=== PATIENT | female | born 1955 | race Caucasian/White ===

== ENCOUNTER → 2024-04-08 16:10 | Outpatient (REF) | payer MEDICARE, SELFPAY | LOC: RCS 16:10 | PROVIDERS: ATTENDING PHYSICIAN Internal Medicine Cardiovascular Disease | DX: R93.1 Abnormal findings on diagnostic imaging of heart and coronary circulation (principal) | CPT/HCPCS: 93306 ==

== ENCOUNTER → 2024-04-09 06:27 | Outpatient (REF) | payer MEDICARE, SELFPAY ==
[2024-04-09] MEDS: LEXISCAN 0.4 MG IV (08:25)
[2024-04-09] MEDS: FLUSH (NSS) 1 FLUSH IV (08:26)
== END ==
LOC: RCS 06:27
PROVIDERS: ATTENDING PHYSICIAN Internal Medicine Cardiovascular Disease
DX: R93.1 Abnormal findings on diagnostic imaging of heart and coronary circulation (principal)
CPT/HCPCS: 78452; 93017; A9500; J2785